=== PATIENT | female | born 1955 | race Caucasian/White ===

== ENCOUNTER → 2016-08-19 | Outpatient (CLI) | payer OTHER ==
[~2016-08-19] MED LIST: ALBUAER19 INH; CIPR-255 PO; EZET10TA47 PO; LEVO75TA36 PO; LISI10TA PO; METF-384 PO; NAPR220T40 PO; SIMV20TA2 PO; VITBC PO
--- NOTE | 2016-08-19 15:47 | MAMMOGRAPHY REPORT ---
BILATERAL DIGITAL SCREENING MAMMOGRAM TOMOSYNTHESIS WITH CAD: 08/19/2016 CLINICAL HISTORY: Routine screening. Patient has no complaints. TECHNIQUE: Breast tomosynthesis in addition to standard 2D mammography was performed. Current study was also evaluated with a Computer Aided Detection (CAD) system. COMPARISON: Comparison is made to exams dated: 04/04/2014 mammogram, 04/22/2010 mammogram - [facility], and 08/11/2007. BREAST COMPOSITION: The tissue of both breasts is almost entirely fatty. FINDINGS: There are numerous benign rim calcifications, rodlike secretory calcifications and stable punctate benign-appearing microcalcifications in the breasts. No new suspicious mass, architectura l distortion or cluster of microcalcifications is seen. IMPRESSION: ACR BI-RADS CATEGORY 1: NEGATIVE There is no mammographic evidence of malignancy. A 1 year screening mammogram is recommended. The p atient will receive written notification of the results. Approximately 10% of breast cancers are not detected with mammography. A negative mammographic repor t should not delay biopsy if a clinically suggestive mass is present. Olesya Urias M.D. ay/:08/19/2016 13:39:06 Pile Trimmer: Fely Reid RT(R)(M), [facility] letter sent: Normal 1/2 BI-RADS Code: ACR BI-RADS Category 1: Negative
== END | disposition home or self-care (01) ==
LOC: C.MAMM 13:12
PROVIDERS: ATTEND Family Medicine
DX: Z12.31 Encounter for screening mammogram for malignant neoplasm of breast (principal)

== ENCOUNTER → 2016-09-01 | Outpatient (CLI) | payer OTHER ==
[2016-09-01 12:30] LABS: ALT/SGPT 34 U/L (12-78); AST/SGOT 24 U/L (15-37); BLOOD UREA NITROGEN 15 mg/dl (7-18); BUN/CREATININE RATIO 17.9 (10-20); CALCIUM 9.8 mg/dl (8.5-10.1); CARBON DIOXIDE 32 mmol/L (21-32); CHLORIDE 101 mmol/L (98-107); CREATININE 0.85 mg/dl (0.60-1.20); GLUCOSE 89 mg/dl (70-99); POTASSIUM 4.3 mmol/L (3.5-5.1); SODIUM 140 mmol/L (136-145)
[2016-09-01 12:40] LABS: ALB/GLOB RATIO 0.9 (0.9-2); ALKALINE PHOSPHATASE 109 U/L (45-117); CHOLESTEROL 178 mg/dl (0-200); CHOLESTEROL/HDL RATIO 3.4; ESTIMATED AVERAGE GLUCOSE 123 mg/dl; HA1C FLAG Normal (Normal); HDL CHOLESTEROL 53 mg/dl; LDL CHOLESTEROL CALCULATED 81 mg/dl; TRIGLYCERIDES 219 mg/dl (0-150); VERY LOW DENSITY LIPOPROT CALC 44 mg/dl
[2016-09-01 13:01] LABS: RATIO 32.3 mcg/mg (0-30.0)
== END | disposition home or self-care (01) ==
LOC: C.LAB1850 10:31
PROVIDERS: ATTEND Family Medicine
DX: E03.9 Hypothyroidism, unspecified (principal); E11.9 Type 2 diabetes mellitus without complications; E78.5 Hyperlipidemia, unspecified; I10 Essential (primary) hypertension

== ENCOUNTER → 2016-12-08 | Outpatient (CLI) | payer OTHER ==
[2016-12-08 13:39] LABS: THYROID STIMULATING HORMONE 4.09 uIu/ml (0.300-4.500)
== END | disposition home or self-care (01) ==
LOC: C.LAB1850 11:42
PROVIDERS: ATTEND Family Medicine
DX: E03.9 Hypothyroidism, unspecified (principal)

== ENCOUNTER → 2017-05-11 | Outpatient (CLI) | payer OTHER ==
[2017-05-11 09:46] LABS: ESTIMATED AVERAGE GLUCOSE 128 mg/dl; HA1C FLAG Normal (Normal)
[2017-05-11 09:57] LABS: ALB/GLOB RATIO 0.9 (0.9-2); ALT/SGPT 32 U/L (12-78); AST/SGOT 23 U/L (15-37); BLOOD UREA NITROGEN 13 mg/dl (7-18); BUN/CREATININE RATIO 17.1 (10-20); CARBON DIOXIDE 27 mmol/L (21-32); CHLORIDE 105 mmol/L (98-107); CHOLESTEROL 165 mg/dl (0-200); CREATININE 0.73 mg/dl (0.60-1.20); GLUCOSE 104 mg/dl (70-99); POTASSIUM 4.1 mmol/L (3.5-5.1); SODIUM 139 mmol/L (136-145); TRIGLYCERIDES 192 mg/dl (0-150); VERY LOW DENSITY LIPOPROT CALC 38 mg/dl
[2017-05-11 10:07] LABS: ALKALINE PHOSPHATASE 117 U/L (45-117); CHOLESTEROL/HDL RATIO 3.3; HDL CHOLESTEROL 50 mg/dl; LDL CHOLESTEROL CALCULATED 77 mg/dl
== END | disposition home or self-care (01) ==
LOC: C.LAB1850 08:24
PROVIDERS: ATTEND Family Medicine
DX: E03.9 Hypothyroidism, unspecified (principal); E11.9 Type 2 diabetes mellitus without complications; E78.5 Hyperlipidemia, unspecified; J20.9 Acute bronchitis, unspecified; I10 Essential (primary) hypertension

== ENCOUNTER 2020-06-10 05:13 | Observation (INO) ==
--- NOTE | 2020-04-23 08:27 | PAT Medication Instructions ---
Medication Instructions Date of Service April 23, 2020 Home Medications Medication Instructions Recorded atorvastatin 20 mg tablet 20 mg PO DAILY #90 tab 08/23/19 escitalopram oxalate 5 mg tablet 5 mg PO DAILY #90 tab 08/23/19 ezetimibe 10 mg tablet 10 mg PO DAILY #90 tab 08/23/19 amlodipine 10 mg tablet 10 mg PO DAILY #90 tab 04/11/20 hydrochlorothiazide 25 mg tablet 25 mg PO DAILY #90 tab 04/11/20 levothyroxine 137 mcg tablet 137 mcg PO DAILY #90 tab 04/11/20 losartan 50 mg tablet 50 mg PO BID #180 tab 04/11/20 metformin 1,000 mg tablet 1,000 mg PO DAILY #90 tab 04/11/20 vitamin B complex 1 tab PO .COMPLEX atorvastatin 20 mg tablet 20 mg PO DAILY escitalopram oxalate 5 mg tablet 5 mg PO DAILY ezetimibe 10 mg tablet 10 mg PO DAILY amlodipine 10 mg tablet 10 mg PO DAILY hydrochlorothiazide 25 mg tablet 25 mg PO DAILY levothyroxine 137 mcg tablet 137 mcg PO DAILY losartan 50 mg tablet 50 mg PO BID metformin 1,000 mg tablet 1,000 mg PO DAILY DO NOT take the morning of surgery vitamin B complex 1 tab PO .COMPLEX hydrochlorothiazide 25 mg tablet 25 mg PO DAILY losartan 50 mg tablet 50 mg PO BID metformin 1,000 mg tablet 1,000 mg PO DAILY Take morning of surgery With a small sip of water, OTHERWISE NOTHING TO EAT OR DRINK AFTER MIDNIGHT: atorvastatin 20 mg tablet 20 mg PO DAILY escitalopram oxalate 5 mg tablet 5 mg PO DAILY ezetimibe 10 mg tablet 10 mg PO DAILY amlodipine 10 mg tablet 10 mg PO DAILY levothyroxine 137 mcg tablet 137 mcg PO DAILY Other Notes If you have any questions please call us at [phone] or [phone] or [phone] or [phone]
--- NOTE | 2020-04-23 09:15 | Anesthesiology Consultation ---
Date of Service April 23, 2020 Assessment & Plan (1) Encounter for pre-operative examination: - Per assessment on 04/23: Travel screen negative. No known COVID-19 positive contacts or current COVID-19 related symptoms. Patient's daughter works at [employer] (nurse)- sees her regularly (but patient voices understanding that she will follow COVID precaution guidelines if any further interactions with daughter prior to DOS. No positive cases currently in that facility per patient. She receives routine work protocol COVID testing which was negative. Surgeon arranging preop COVID testing. Awaiting results. - Check BSG AM DOS Chart Review Chart Review: Acceptable Risk for Surgery and Patient seen in Pre Admission T esting Teaching & Discussion Pre-Anesthesia Teaching/Discussion Notes: Instructed NPO after midnight before surgery,except medications with 15 cc of water. Medication instructions provided according to the PAT guidelines. History Surgery Operation Date: 06/10/20 09:20 Proposed Procedures p Right Total Knee Arthroplasty - Leonardo Phillips MD Height/Weight Height: 5 ft 5.5 in Weight: 92.1 kg Allergies Allergy/AdvReac Type Severity Reaction Status Date / Time ibuprofen [From Advil] AdvReac Intermediate heart Verified 04/23/20 09:09 fluttering sensation (see comments) Medications Home Medications Medication Instructions Recorded Confirmed Last Taken vitamin B complex 1 tab PO .COMPLEX 04/24/19 04/19/20 Unknown atorvastatin 20 mg tablet 20 mg PO DAILY #90 tab 08/23/19 04/19/20 Unknown escitalopram oxalate 5 mg tablet 5 mg PO DAILY #90 tab 08/23/19 04/19/20 Unknown ezetimibe 10 mg tablet 10 mg PO DAILY #90 tab 08/23/19 04/19/20 Unknown amlodipine 10 mg tablet 10 mg PO DAILY #90 tab 04/11/20 04/19/20 Unknown hydrochlorothiazide 25 mg tablet 25 mg PO DAILY #90 tab 04/11/20 04/19/20 Unknown levothyroxine 137 mcg tablet 137 mcg PO DAILY #90 tab 04/11/20 04/19/20 Unknown losartan 50 mg tablet 50 mg PO BID #180 tab 04/11/20 04/19/20 Unknown metformin 1,000 mg tablet 1,000 mg PO DAILY #90 tab 04/11/20 04/19/20 Unknown Past Medical History Medical History Depression Hx of migraines Hyperlipidemia Hypertension Hypothyroidism Obesity Osteoarthritis Type 2 diabetes mellitus NIDDM Exercise / Class Metabolic Activity II 4-5 Yardwork/Stairs/Walk up hill Past Family History Family History Mother Atherosclerosis Peripheral vascular disease Father , age 45 Stroke Hypertension Aunt Diabetes maternal Breast cancer maternal Grandmother (Maternal) Diabetes Sister Hypertension Denies family history of Ovarian cancer Prostate cancer Lung cancer Colorectal cancer Past Surgical History Surgical History H/O arthroscopy of right knee History of hysterectomy Kinde teeth removed Past Anesthesia History No Hx of Anesthesia Complications Mother- "slow to wake" History of PONV No Hx of PONV and Hx of Motion Sickness (+ carrides) Social History Smoking Status: Never smoker Do You Dip or Chew Tobacco: No Hx Alcohol Use: Yes alcohol intake frequency: holidays/special occasions only Hx Substance Use: No substance use type: does not use Review of Systems Patient denies chest pain, shortness of breath, dyspnea on exertion, fever, chills, cough, wheezing, palpitations. Physical Exam Vital Signs VITALS BP 123/81 P 90 TEMP 98.0 SP02 97%RA RESP 16 PHYSICAL Full neck and c-spine range of motion. Full TMJ range of motion. TMD 3 finger breaths Mallampati Score 1 Dentition: upper front right chipped Lungs: clear throughout to auscultation Cardiac: regular rate and rhythm, I/ systolic murmur Spine: normal Carotid arteries: negative bruit Extremities: no edema Testing Laboratory Results 04/23/20 09:34 04/23/20 09:34 PT 10.3 Seconds (9.0-12.0) 04/23/20 09:34 INR 1.0 (0.9-1.1) 04/23/20 09:34 APTT 25.6 Seconds (21.0-31.0) 04/23/20 09:34 Hemoglobin A1c 5.9 % (4.5-5.6) H 04/23/20 09:34 Blood Type B Positive 04/23/20 09:34 Antibody Screen NEGATIVE 04/23/20 09:34 Electrocardiogram Date: 04/23/20 NSR at 89bpm. unconfirmed report. Chest X-Ray Date: 04/23/20 FINDINGS: PA and lateral chest radiographs are obtained. No prior studies are available for comparison at the time of dictation. The cardiomediastinal silhouette is unremarkable. There is mild bibasilar atelectasis. The lungs and pleural spaces are otherwise clear. There is no pneumothorax. The skeletal structures are osteopenic. The bony thorax appears intact. Mild subluxation is suggested at both glenohumeral joints. IMPRESSION: No active disease in the chest.
[2020-04-23 10:11] LABS: Basophils # (auto) 0.03 K/uL (0-0.2); Basophils % (auto) 0.4 %; Eosinophils # (auto) 0.28 K/uL (0-0.5); Eosinophils % (auto) 3.3 %; Hematocrit (blood only) 43.2 % (37-47); Hemoglobin 14.6 g/dL (12.0-16.0); Immature Granulocytes # (auto) 0.01 K/uL (0.00-0.02); Immature Granulocytes % (auto) 0.1 %; Lymphocytes # (auto) 1.86 K/uL (1.2-3.4); Lymphocytes % (auto) 21.8 %; Mean Corpuscular Hgb Conc 33.8 g/dL (32-36); Mean Corpuscular Volume 91.7 fL (80-100); Mean Platelet Volume 9.8 fL (7.4-10.4); Monocytes # (auto) 0.78 K/uL (0.11-0.59); Monocytes % (auto) 9.1 %; Neutrophils # (auto) 5.57 K/uL (1.4-6.5); Neutrophils % (auto) 65.3 %; Platelet Count 379 K/uL (130-400); RDW Coefficient of Variation 12.3 % (11.5-14.5); RDW Standard Deviation 41.5 fL (36.4-46.3); Red Blood Count 4.71 M/uL (4.2-5.4); White Blood Count 8.53 K/uL (4.8-10.8)
[2020-04-23 10:19] LABS: Estimated Average Glucose 123 mg/dl; Hemoglobin A1C 5.9 % (4.5-5.6)
[2020-04-23 10:23] LABS: Partial Thromboplastin Ratio 0.9; Partial Thromboplastin Time 25.6 Seconds (21.0-31.0); Prothrombin Time 10.3 Seconds (9.0-12.0)
--- NOTE | 2020-04-23 10:55 | XRay Report ---
TWO VIEW CHEST CLINICAL HISTORY: Preoperative examination. FINDINGS: PA and lateral chest radiographs are obtained. No prior studies are available for compariso n at the time of dictation. The cardiomediastinal silhouette is unremarkable. There is mild bibasila r atelectasis. The lungs and pleural spaces are otherwise clear. There is no pneumothorax. The skelet al structures are osteopenic. The bony thorax appears intact. Mild subluxation is suggested at both g lenohumeral joints. IMPRESSION: No active disease in the chest. ACT 112: Negative or not required by law. Electronically signed by: Anjum Newton M.D. 04/23/2020 10:54 AM
[2020-04-23 11:31] LABS: BUN Creatinine Ratio 15.4 (10-20); Calcium 9.5 mg/dl (8.5-10.1); Creatinine Clr Calc Pharmacy 83.6 ml/min; Est GFR (Non-African American) 80.2; Potassium 3.7 mmol/L (3.5-5.1)
--- NOTE | 2020-04-23 18:12 | Electrocardiogram Report ---
Test Reason : Blood Pressure : / mmHG Vent. Rate : 089 BPM Atrial Rate : 089 BPM P-R Int : 158 ms QRS Dur : 100 ms QT Int : 372 ms P-R-T Axes : 068 036 053 degrees QTc Int : 452 ms Normal sinus rhythm Normal ECG When compared with ECG of 24-SEP-2004 16:22, Nonspecific T wave abnormality no longer evident in Inferior leads Confirmed by Gilmer Grant ([id number]) on 04/23/2020 6:12:41 PM Referred By: Leonardo Phillips Confirmed By:George Grant
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
[2020-06-10] MEDS ORDERED: FAMOTIDINE 20 MG TAB PO SCH (06:00)
[2020-06-10] MEDS ORDERED: GABAPENTIN 300 MG CAP PO SCH (06:00)
[2020-06-10] MEDS ORDERED: LR 500ML BOLUS, THEN 15ML/HR IV SCH (06:00)
[2020-06-10] MEDS ORDERED: TRANEXAMIC ACID 1,000 MG **IV Intra-op IV SCH (06:00)
[2020-06-10] MEDS ORDERED: ACETAMINOPHEN 500 MG TAB PO SCH (06:00)
[2020-06-10] MEDS ORDERED: BUPIVACAINE LIPOSOME/PF 266 MG, BUPIVACAINE/EPINEPHRINE 50 ML, SODIUM CHLORIDE 0.9% 30 ... INFIL SCH (06:00)
[2020-06-10] MEDS ORDERED: ceFAZolin 2000MG 2,000 MG/15 ML SYR IV SCH (06:00)
[2020-06-10] MEDS ORDERED: METOCLOPRAMIDE HCL 10 MG TABLET PO SCH (06:00)
[2020-06-10] MEDS ORDERED: LR 60ML/HR IV SCH (06:00)
[2020-06-10] MEDS ORDERED: fentaNYL citrate 100 MCG/2 ML VIAL ONE (06:22)
[2020-06-10] MEDS ORDERED: MIDAZOLAM HCL 1 MG/ML 2ML VIAL ONE (06:22)
[2020-06-10] MEDS ORDERED: PROPOFOL IV EMULSION 10 MG/ML 20 ML VIAL IV ONE (06:22)
[2020-06-10] MEDS ORDERED: EPINEPHrine INJ 1 MG/ML AMP ONE (06:27)
[2020-06-10] MEDS ORDERED: ROPIVACAINE 0.5% 5 MG/ML 30 ML VIAL ONE (06:27)
[2020-06-10] MEDS ORDERED: BUPIVACAINE 0.5 % 5 MG/1 ML PF 10ML VIAL ONE (06:27)
[2020-06-10] MEDS ORDERED: BUPIVACAINE LIPOSOME 1.3% 266 MG/20 ML VIAL ONE (06:28)
[2020-06-10] MEDS ORDERED: SODIUM CHLORIDE 0.9% PF 50 ML VIAL ONE (06:28)
[2020-06-10] MEDS ORDERED: BACITRACIN INJ 50,000 UNIT VIAL ONE (06:28)
[2020-06-10] MEDS ORDERED: BUPIVACAINE/EPINEPHRINE 0.25% 1:200,000 30 ML VIAL ONE (06:28)
--- NOTE | 2020-06-10 06:50 | History & Physical Bridge Note ---
Date of Service June 10, 2020 History & Physical Bridge Note I have examined the patient, reviewed the History & Physical and in the interval since the performance of the History & Physical I have noted the following changes of clinical significance: no changes noted
[2020-06-10] MEDS ORDERED: ePHEDrine sulfate 50 MG/ML SYR ONE (07:17)
[2020-06-10] MEDS ORDERED: PHENYLEPHRINE 100MCG/ML 5ML SYR ONE (07:17)
[2020-06-10] MEDS ORDERED: ePHEDrine sulfate 50 MG/ML AMP IV PRN (07:18)
[2020-06-10] MEDS ORDERED: PHENYLEPHRINE 100MCG/ML 5ML SYR IV PRN (07:18)
[2020-06-10] MEDS ORDERED: fentaNYL citrate 100 MCG/2 ML VIAL IV PRN (07:18)
[2020-06-10] MEDS ORDERED: HYDROmorphone INJ 1 MG/ML SYRINGE IV PRN (07:18)
[2020-06-10] MEDS ORDERED: ATROPINE SULFATE 0.1 MG/ML 10ML SYR IV PRN (07:18)
[2020-06-10] MEDS ORDERED: MEPERIDINE HCL 25 MG/ML CARP/VIAL IV PRN (07:18)
[2020-06-10] MEDS ORDERED: LABETALOL HCL IV 5 MG/ML 20ML IV PRN (07:18)
[2020-06-10] MEDS ORDERED: ONDANSETRON INJ 2 MG/ML 2 ML VIAL IV PRN ×2 (07:18→09:54)
--- NOTE | 2020-06-10 08:39 | Post Operative Brief Note ---
PG Immediate Post Op with CF Date of Surgery June 10, 2020 Pre & Post Diagnosis Operation Date: 06/10/20 07:00 Pre-Op Diagnosis: Right Knee Degenerative Joint Disease Post-Op Diagnosis: Right Knee Degenerative Joint Disease I identified the patient and participated in the time-out.: Yes Procedure Operation Date: 06/10/20 07:00 Actual Procedures p Right Total Knee Arthroplasty, Cemented(Right) - Leonardo Phillips MD Surgeon Leonardo Phillips MD Technical Communication Teacher [place], [facility] Estimated Blood Loss 50 Findings Consistent with Post-Op Diagnosis Fluids 1000 cc Specimens Specimen Description: Permanent Specimen A: Right knee bone and tissue Drains Rubio Catheter Anesthesia Type Spinal MAC Complications none Disposition Accompanied Patient To Recovery: No Disposition: Recovery Room
--- NOTE | 2020-06-10 08:52 | Operative Report ---
Post Operative Report Pre & Post Diagnosis Operation Date: 06/10/20 07:00 Pre-Op Diagnosis: Right Knee Degenerative Joint Disease Post-Op Diagnosis: Right Knee Degenerative Joint Disease I identified the patient and participated in the time-out.: Yes Procedure Operation Date: 06/10/20 07:00 Actual Procedures p Right Total Knee Arthroplasty, Cemented(Right) - Leonardo Phillips MD Surgeon Leonardo Phillips MD Recycling Specialist [place], [facility] Estimated Blood Loss 50 Findings Consistent with Post-Op Diagnosis Operative findings revealed advanced right knee DJD. She had extensive grade 4 [id number] disease and eburnation of the medial compartment. and a slight flexion contracture. Moderate-sized joint effusion. She less severe changes in the lateral and patellofemoral compartments. She had a varus deformity to her knee with large posterior osteophytes. Moderate-sized joint effusion. Fluids 1000 cc. Specimens Right knee sent for pathology. Drains None. Anesthesia Type Spinal MAC Complications none Disposition Accompanied Patient To Recovery: No Disposition: Recovery Room Indications Patient is a 64-year-old female with about 10-year history of bilateral increasing knee pain and discomfort. She been through extensive conservative treatment the past with became less successful. X-rays show advanced bilateral knee DJD. The right knee was by the more than left and she elected proceed with right total knee arthroplasty. Description of Procedure Operative implants consist of: 1. Biomet Vanguard size 62.5 right posterior stabilized femoral component. 2. Biomet size 63 tibial tray. 3. 10 mm posterior stabilized polyethylene insert. 4. 28 x 8 all polypatella. The patient was taken to the operating identified and placed on the operating table supine position but all contact areas were properly padded. IV antib iotics tried by anesthesia team. A spinal anesthetic and abductor canal block had been provided in the holding area. Rubio catheter was placed in sterile fashion. Right thigh tip was then placed in the right lower extremities and prepped draped in usual sterile fashion. The right leg was elevated exsanguinated with use of an Esmarch and turns placed at 3 mmHg. An anterior approach to the right knee was then performed to longitudinal incision centered over the patella. Sharp dissection was got through subcutaneous this down the extensor mechanism. A medial parapatellar arthrotomy incision was made. Some subperiosteal dissection was carried out medially. The fat pad was resected from each patella tendon. Lateral patellofemoral ligament was released. Patella was subluxated laterally and the knee was flexed. The osteophytes were taken off distal femur. The ACL and PCL were then released from the distal femur and the tibia subluxated anteriorly. The external tibial alignment jig was then placed in the interface the tibia and adjusted 14 mm medially. Proximal tibial cut was made to remove about a millimeter bone from most efficient aspect medial till plateau. Some osteoph ytes were taken off medial and posterior medially. The tibia sized to a size 63. Attention drawn the femur. The distal femur examined with a sharp drill. Intramedullary canal was suction. A right 5 degree valgus cutting guide was placed but distal femoral cutting block was pinned in place but this femoral cut was made to take an additional 3 mm bone off distal femur. Femur was then sized to a size 62.5. We downsized this just very slightly. The AP cutting block was pinned parallel to the epicondylar axis which was 4 degrees of external rotation. Anterior cut, anterior chamfer, posterior cut, posterior chamfer cuts were made. Box cutting guide was placed and adjusted slightly laterally. The box cut was made. The knee was flexed. The remnants of the medial lateral menisci were excised. The osteophytes were taken off the posterior aspect the femur. A trial femoral component was placed. The tibial tray was pinned in maximum external rotation and the drill and stem punch were used to create defect in proximal tibia for the tibial tray. Knee was then trialed and the 10 mm insert fit most appropriately. Attention drawn the patella. Patella was cleaned of all soft tissues. Patella thickness measured 21 mm in thickness and was cut down 13. Size a size 28 patella. The lug holes were drilled for the 28 patella. The lateral osteophyte is moved. Patella button was placed. Knee was taken through range of motion patella tracked nicely with no thumbs test. Attention drawn to placing permanent components. All trial components were removed. Bone plug was placed in the distal femur limit blood loss put a double batch Palacos G cement was mixed. [employer] size 62.5 right posterior stabilized femoral component, size 63 tibial tray, 10 mm posterior bite polyethylene insert, 28 x 8 all polypatella were then cemented in place. Knee was brought out into full extension total cement hardened. Final cement check was then performed. The pericapsular tissues were injected with total 100 cc of combination of 20 cc of Exparel, 30 cc normal saline, 50 cc of quarter percent Marcaine with epinephrine. Patient did receive 1 g tranexamic acid. The tourniquet was then let down for final treatment time 50 minutes. Hemostasis assured use electrocautery. The wound was irrigated with copious normal saline. The extensor macros then closed with combination 1 PDS suture #1 Vicryl suture in [id number] fashion. Extensor mechanism checked found to be intact and the subcutaneous tissue then closed with 2 Dexon suture in a buried interrupted fashion skin was closed skin lawrence. Leg was then cleaned dried and sterile dressed composed Xeroform, 4 fourths, sterile cast padding, Myron bandage applied. Patient then transferred to the recovery room in stable condition. Patient tolerated procedure well and there were no complications. Jan Christina, my physician insurance account assistant, was present for the entire procedure. His assistance was essential and required for appropriate patient positioning, prepping and draping, surgical exposure, performing the technical details of the operation, placement the implants, closure of the wound, and placement of the sterile bandage. I attest to the content of the Intraoperative Record and any orders documented therein. Any exceptions are noted below.
--- NOTE | 2020-06-10 09:09 | XRay Report ---
XR knee RT 1 or 2V routine CLINICAL HISTORY: Surgical Post Op COMPARISON: December 2018 DISCUSSION: There are postsurgical changes of a total right knee arthroplasty and patellar resurfacin g. Overlying skin lawrence and surgical drains are visualized. The femoral tibial components appear we ll seated. There is gas present within the soft tissues consistent with recent surgery. IMPRESSION: Postsurgical changes of a total right knee arthroplasty. ACT 112: Negative or not required by law. Electronically signed by: Ken Del Toro M.D. 06/10/2020 9:08 AM
--- NOTE | 2020-06-10 09:31 | Anesthesiology Progress Note ---
Date of Service June 10, 2020 Anesthesia Post Procedure Vital Signs Vital Signs: Temp Pulse Pulse Resp BP Pulse Ox 06/10/20 09:20 80 20 128/62 92 06/10/20 09:10 76 16 101/71 98 06/10/20 09:00 80 16 101/64 98 06/10/20 08:50 78 19 104/60 99 06/10/20 08:44 36.2 C L 84 19 121/64 98 06/10/20 06:05 80 18 151/90 H 96 06/10/20 05:48 36.7 C 90 18 166/103 H 98 Transfer of Care Handoff Completed per policy Notes Mental Status: alert / awake / arousable Patient Amnestic to Procedure: Yes Nausea / Vomiting: adequately controlled Pain: adequately controlled Airway Patency, RR, SpO2: stable & adequate BP & HR: stable & adequate Hydration State: stable & adequate Neuraxial Anesthesia: was administered and sensory block is resolving Anesthetic Complications: no major complications apparent and Pt Satisfied with anesthetic care
[2020-06-10] MEDS ORDERED: MAGNESIUM HYDROXIDE SUSP 30 ML UDC PO PRN (09:54)
[2020-06-10] MEDS ORDERED: DEXTROSE 50% 50 ML SYRINGE IV PRN (09:54)
[2020-06-10] MEDS ORDERED: PHARMACY GLYCEMIC MGMT CONSULT PRN (09:54)
[2020-06-10] MEDS ORDERED: GLUCOSE 40% GEL 15 GM TUBE PO PRN (09:54)
[2020-06-10] MEDS ORDERED: NALOXONE HCL 0.4 MG/1 ML VIAL/CARP IV PRN (09:54)
[2020-06-10] MEDS ORDERED: METOCLOPRAMIDE HCL INJ 5 MG/ML 2 ML VIAL IV PRN (09:54)
[2020-06-10] MEDS ORDERED: ALUMINUM/MAGNESIUM SUSP 30 ML UDC PO PRN (09:54)
[2020-06-10] MEDS ORDERED: CARBOHYDRATES FOR HYPOGLYCEMIA PO PRN (09:54)
[2020-06-10] MEDS ORDERED: diphenhydrAMINE Capsule 25 MG CAP PO PRN (09:54)
[2020-06-10] MEDS ORDERED: HYDROmorphone INJ 0.5 MG/0.5 ML SYR IV PRN (09:54)
[2020-06-10] MEDS ORDERED: bisacodyL 10 MG SUPP PR PRN (09:54)
[2020-06-10] MEDS ORDERED: GLUCAGON FOR INJ 1 MG VIAL SQ PRN (09:54)
[2020-06-10] MEDS ORDERED: GLUCOSE 10 TABS/TUBE PO PRN (09:54)
--- NOTE | 2020-06-10 10:29 | Pharmacy Report ---
Glycemic Control Consultation - Date of Service June 10, 2020 - Scope Scope: Glycemic Pharmacist consulted for glycemic control and to write orders per [facility] inpatient glycemic control protocol. - Objective Weight: 89.528 kg Accuchecks BSG (last 24hrs): 06/10/20 06/10/20 06/10/20 05:39 08:50 10:08 POC Glucose 101 H 143 H 104 H HbA1c: Hemoglobin A1c 5.9 % (4.5-5.6) H 04/23/20 09:34 - Recent Pertinent Medications Outpatient Anti-diabetic Regimen: * Metformin 1000 mg PO qAM * A1c = 5.9% 04/23/2020 Risk Factors for Insulin Resistance: * Recent Surgery: * POD #0 s/p R TKA * Diet: * T2DM - Assessment & Plan Assessment & Plan: ASSESSMENT: * 64 yo F admitted s/p R TKA this morning. Pharmacy is consulted for inpatient glycemic management. Patient's HbA1c demonstrates excellent outpatient control of T2DM on metformin monotherapy. * Post-operative BSG was 104 mg/dL. Patient is ordered a T2DM diet and will be eating lunch. * Will start Novolog based on a weight/stress of 1-2. Will order metformin to start tomorrow morning. PLAN FOR INPATIENT GLYCEMIC CONTROL: * Metformin 1000 mg PO qAM (starting 06/11) * Bolus insulin * NovoLog per scale ACHS or Q6hrs while NPO * Goal Range: Low 110 mg/dL - High 140 mg/dL * Correction Factor: 30 mg/dL/unit * Nutritional / Prandial insulin per carb ratio of 1 unit per 10 grams CHO consumed DISCHARGE RECOMMENDATIONS: * HbA1c = 5.9%. Continue Metformin 1000 mg PO qAM upon patient discharge. * Please note that the plan above was derived based on current level of insulin resistance and hospital stress. These recommendations are appropriate for inpatient admission only. Plan of care upon discharge will need to be reassessed to avoid potential outpatient hypo/hyperglycemia. Thank you.
[2020-06-10] MEDS: DOCUSATE SODIUM 100 MG CAP PO SCH ×2 (11:24→20:55)
[2020-06-10] MEDS: hydroCHLOROthiazide 25 MG TAB PO SCH (11:24)
[2020-06-10] MEDS: MULTIVITAMIN TAB PO SCH (11:24)
[2020-06-10] MEDS: EZETIMIBE 10 MG TABLET PO SCH (11:25)
[2020-06-10] MEDS: ATORVASTATIN 20 MG TAB PO SCH (11:25)
[2020-06-10] MEDS: ASPIRIN 81 MG ECTAB PO SCH ×2 (11:25→20:55)
[2020-06-10] MEDS: LOSARTAN POTASSIUM 50 MG TAB PO SCH ×2 (11:25→20:55)
[2020-06-10] MEDS: TAPENTADOL HCL ER 50 MG TABCR PO SCH ×2 (12:21→20:55)
[2020-06-10] MEDS: KETOROLAC 30 MG/ML VIAL IV SCH ×3 (12:21→22:21)
[2020-06-10] MEDS: INSULIN ASPART 100 UNITS/ML 3 ML PEN SC SCH ×3 (12:54→23:09)
[2020-06-10] MEDS: ACETAMINOPHEN 500 MG TAB PO SCH ×2 (14:02→22:21)
[2020-06-10] MEDS: SODIUM CHLORIDE 0.9% 1000ML 1,000 ML IV SCH ×2 (14:02→20:40)
[2020-06-10] MEDS: ceFAZolin 2000MG 2,000 MG/15 ML SYR IV SCH ×2 (14:03→22:22)
[2020-06-10] MEDS ORDERED: TRANEXAMIC ACID / 0.7% NACL 1,000 MG/100 ML BAG IV SCH (15:00)
[2020-06-10] MEDS: oxyCODONE HCL IR 5 MG TAB (IMMEDIATE RELEASE) PO PRN (15:33)
[2020-06-10] MEDS: Scopolamine CHECK PATCH PLACEMENT SCH (15:45)
[2020-06-10] MEDS: FERROUS GLUCONATE 324 MG TAB PO SCH (16:47)
[2020-06-10] MEDS: ASCORBIC ACID 500 MG TAB PO SCH (16:48)
[2020-06-10] MEDS: SENNA 8.6 MG TAB PO SCH (20:55)
[2020-06-11] MEDS: Scopolamine CHECK PATCH PLACEMENT SCH ×3 (00:25→15:27)
[2020-06-11] MEDS ORDERED: COUGH DROP (SUGAR FREE) LOZ 24 LOZ/1 BOX BUCCAL PRN (04:26)
[2020-06-11] MEDS: KETOROLAC 30 MG/ML VIAL IV SCH ×4 (04:50→22:12)
[2020-06-11] MEDS: ACETAMINOPHEN 500 MG TAB PO SCH ×3 (05:30→21:30)
[2020-06-11 07:31] LABS: Hematocrit (blood only) 38.9 % (37-47); Hemoglobin 12.6 g/dL (12.0-16.0); Mean Corpuscular Hemoglobin 30.4 pg (25-34); Mean Corpuscular Hgb Conc 32.4 g/dL (32-36); Mean Corpuscular Volume 93.7 fL (80-100); Mean Platelet Volume 9.7 fL (7.4-10.4); Platelet Count 346 K/uL (130-400); RDW Coefficient of Variation 12.6 % (11.5-14.5); RDW Standard Deviation 43.2 fL (36.4-46.3); Red Blood Count 4.15 M/uL (4.2-5.4); White Blood Count 9.93 K/uL (4.8-10.8)
[2020-06-11 08:05] LABS: BUN Creatinine Ratio 17.2 (10-20); Calcium 8.3 mg/dl (8.5-10.1); Creatinine Clr Calc Pharmacy 67.8 ml/min; Est GFR (African American) 73.5; Est GFR (Non-African American) 63.4; Potassium 3.9 mmol/L (3.5-5.1)
[2020-06-11] MEDS: INSULIN ASPART 100 UNITS/ML 3 ML PEN SC SCH ×4 (08:34→20:54)
[2020-06-11] MEDS: DOCUSATE SODIUM 100 MG CAP PO SCH ×2 (08:36→21:31)
[2020-06-11] MEDS: ASCORBIC ACID 500 MG TAB PO SCH ×2 (08:36→17:50)
[2020-06-11] MEDS: metFORMIN HCL 500 MG TAB PO SCH (08:37)
[2020-06-11] MEDS: ASPIRIN 81 MG ECTAB PO SCH ×2 (08:37→21:30)
[2020-06-11] MEDS: LOSARTAN POTASSIUM 50 MG TAB PO SCH ×2 (08:37→21:29)
[2020-06-11] MEDS: MULTIVITAMIN TAB PO SCH (08:38)
[2020-06-11] MEDS: ESCITALOPRAM OXALATE 10 MG TAB PO SCH (08:38)
[2020-06-11] MEDS: EZETIMIBE 10 MG TABLET PO SCH (08:39)
[2020-06-11] MEDS: hydroCHLOROthiazide 25 MG TAB PO SCH (08:39)
[2020-06-11] MEDS: amLODIPine BESYLATE 5 MG TAB PO SCH (08:39)
[2020-06-11] MEDS: FERROUS GLUCONATE 324 MG TAB PO SCH ×2 (08:40→17:50)
[2020-06-11] MEDS: ATORVASTATIN 20 MG TAB PO SCH (08:40)
[2020-06-11] MEDS: TAPENTADOL HCL ER 50 MG TABCR PO SCH ×2 (08:46→21:28)
[2020-06-11] MEDS ORDERED: VITAMIN B COMPLEX TAB PO SCH (09:00)
[2020-06-11] MEDS: oxyCODONE HCL IR 5 MG TAB (IMMEDIATE RELEASE) PO PRN ×2 (10:05→17:58)
--- NOTE | 2020-06-11 10:52 | Pharmacy Report ---
Pharmacy Glycemic Sign Off Nt - Date of Service June 11, 2020 - Assessment & Plan ASSESSMENT: * Pharmacy was consulted by Dr. Vesta Phillips on 06/10/2020 for glycemic control and to write orders per [facility] inpatient glycemic control protocol. * Major changes made by pharmacy to antidiabetic regimen include: * Patient was resumed on her home dose of Metformin 1000 mg PO qAM post- operatively * She was started on bolus insulin to cover carbohydrates and correct hyperglycemia * Patient has been receiving/requiring < 10 units of insulin per day for adequate glycemic control * BSGs ranging 86 - 143 mg/dl * Regimen has only required minor adjustments over the past 48hrs to achieve this level of control * Do not anticipate further changes in patient status that would quickly deteriorate glycemic control (i.e. patient to be NPO for upcoming procedure, steroids tapering, starting tube feedings, etc). * Please see recommendations for outpatient antidiabetic regimen below. PLAN FOR INPATIENT GLYCEMIC CONTROL: No changes needed to current regimen. * Continue Metformin 1000 mg PO qAM * Continue NovoLog per scale ACHS/Q6hrs while NPO * Goal range = 110 - 140 mg/dl * CF = 30 mg/dl/unit * CR = 1 unit for ever 10 g CHO consumed * Pharmacy is signing off of glycemic consult and will no longer be making adjustments to inpatient regimen. Please feel free to re-consult if needed. Thank you. DISCHARGE RECOMMENDATIONS: * A1c 5.9% on 04/23/2020. Continue Metformin 1000 mg PO qAM upon patient discharge.
--- NOTE | 2020-06-11 13:22 | Progress Notes ---
DATE: 06/11/2020 SUBJECTIVE: A 64-year-old female postop day 1 from a right knee replacement. She is doing okay. Therapy went okay. Moderate amount of pain. Having some nausea and concerned about that. No chest pain or shortness of breath. Not feeling dizzy or lightheaded. OBJECTIVE: VITAL SIGNS: Temperature 36.8. Vital signs stable. GENERAL: Shows a pleasant, middle-aged female. She is sitting up in bed, looks reasonably comfortable. LUNGS: Clear to auscultation. HEART: Has a regular rate and rhythm. ABDOMEN: Soft, nontender, nondistended. EXTREMITIES: Grossly neurovascularly intact except as follows: Examination of the right leg reveals the leg to be well aligned. Dressing is clean, dry and intact. She can dorsiflex and plantarflex her foot appropriately. She is neurologically intact. LABORATORY DATA: Hemoglobin 12.6. Hematocrit 38.9. Electrolytes are stable. ASSESSMENT: A 64-year-old female postop day 1 from right knee replacement, doing okay. Having some nausea, which is not unusual. Likely related to anesthesia and pain medicine. PLAN: 1. DVT prophylaxis including thigh-high TEDs, SCDs, and aspirin twice a day. 2. PT/OT. Weight bear as tolerated. Right total knee protocol. 3. Pain control, doing okay with current pain regimen. 4. Nausea. We will continue using Zofran for nausea. 5. Disposition: She is planning to be discharged to home with some home health once adequately recovered and medically stable.
[2020-06-11] MEDS: SENNA 8.6 MG TAB PO SCH (21:29)
[2020-06-12] MEDS: Scopolamine CHECK PATCH PLACEMENT SCH ×2 (00:29→09:07)
[2020-06-12] MEDS: ACETAMINOPHEN 500 MG TAB PO SCH ×2 (05:48→14:37)
[2020-06-12] MEDS: KETOROLAC 30 MG/ML VIAL IV SCH (05:49)
--- NOTE | 2020-06-12 08:03 | Progress Notes ---
DATE: 06/12/2020 SUBJECTIVE: A 64-year-old white female postop day 2 from a right knee replacement. She is doing pretty well. Nausea seems to be improved today. Pain is controlled. No chest pain or shortness of breath. Not feeling dizzy or lightheaded. OBJECTIVE: VITAL SIGNS: Temperature 37.0. Vital signs stable. GENERAL: Physical examination shows a pleasant, middle-aged female. She is lying in bed, looks pretty comfortable this morning. EXTREMITIES: Examination of the right leg reveals the leg to be well aligned. Dressing is clean, dry, and intact. She can dorsiflex and plantarflex her foot appropriately. She is neurologically intact. ASSESSMENT: A 64-year-old white female postop day 2 from right knee replacement, doing well. Nausea is improved. Pain seems to be controlled. PLAN: 1. DVT prophylaxis including thigh-high TEDs, SCDs, and aspirin twice a day. 2. PT/OT. Weight bear as tolerated. Right total knee protocol. 3. Pain control, doing well with current pain regimen. 4. Disposition: Plan to discharge to home later today with some home health.
[2020-06-12] MEDS: FERROUS GLUCONATE 324 MG TAB PO SCH (08:59)
[2020-06-12] MEDS: DOCUSATE SODIUM 100 MG CAP PO SCH (08:59)
[2020-06-12] MEDS: EZETIMIBE 10 MG TABLET PO SCH (08:59)
[2020-06-12] MEDS: ATORVASTATIN 20 MG TAB PO SCH (08:59)
[2020-06-12] MEDS: amLODIPine BESYLATE 5 MG TAB PO SCH (08:59)
[2020-06-12] MEDS: hydroCHLOROthiazide 25 MG TAB PO SCH (09:00)
[2020-06-12] MEDS: metFORMIN HCL 500 MG TAB PO SCH (09:00)
[2020-06-12] MEDS: ASCORBIC ACID 500 MG TAB PO SCH (09:00)
[2020-06-12] MEDS: ESCITALOPRAM OXALATE 10 MG TAB PO SCH (09:00)
[2020-06-12] MEDS: LOSARTAN POTASSIUM 50 MG TAB PO SCH (09:00)
[2020-06-12] MEDS: MULTIVITAMIN TAB PO SCH (09:01)
[2020-06-12] MEDS: ASPIRIN 81 MG ECTAB PO SCH (09:01)
[2020-06-12] MEDS: TAPENTADOL HCL ER 50 MG TABCR PO SCH (09:07)
[2020-06-12] MEDS: INSULIN ASPART 100 UNITS/ML 3 ML PEN SC SCH ×2 (09:10→12:41)
[2020-06-12] MEDS: oxyCODONE HCL IR 5 MG TAB (IMMEDIATE RELEASE) PO PRN (12:44)
--- NOTE | 2020-06-13 16:13 | Discharge Summary ---
Date of Service June 13, 2020 Admission HPI Per Admitting Provider Documented in the H & P Admission Exam (Per Admitting) Constitutional Documented in the H &P Discharge Data Consultations 06/10/20 09:54 Consult Case Management - Discharge Planning Routine Procedures Performed Operation Date: 06/10/20 07:00 Actual Procedures p Right Total Knee Arthroplasty, Cemented(Right) - Leonardo Phillips MD Hospital Course (1) Status post total right knee replacement: This patient is a 64 year old female admitted on 06/10/20 and underwent total knee arthroplasty. She tolerated the procedure well and there were no complications. Transferred to the PACU post op and later to the orthopedic floor for further care. She was given ancef for antibiotic prophylaxis. She was also given COURTNEY stockings, SCDs, and aspirin for DVT prophylaxis. Hemoglobin, hematocrit, and vital signs were monitored during her hospital stay and remained stable. Did not require any blood transfusions. There were no complications during her hospital stay. By post op day #2 the patient was tolerating a diabetic diet, pain was reasonably controlled with oral pain medicine, and she was participating in physical therapy. On post op day #2 the patient was discharged home and set up with home health care. She was given printed discharge instructions including prescriptions for extra strength tylenol, aspirin, zofran, and oxycodone. Continue physical therapy, weight bearing as tolerated. Continue COURTNEY stockings. Follow up approximately 2 weeks post op or sooner if there are problems or concerns. Coding Level of Care Code None Diagnoses Status post total right knee replacement Z96.651
== END 2020-06-12 14:37 | disposition home health service (06) ==
LOC: 3E 05:13 → ASU 05:13

== ENCOUNTER 2025-02-02 08:46 | Observation (INO) ==
--- NOTE | 2025-01-03 12:36 | PAT Medication Instructions ---
Medication Instructions Date of Service January 03, 2025 Home Medications Medication Instructions Recorded blood sugar diagnostic (OneTouch #100 ea 07/08/22 Ultra Test strips) blood-glucose meter (OneTouch #1 ea 07/08/22 Ultra2 Meter kit) cyclobenzaprine 5 mg tablet 5 mg PO TID PRN muscle spasm #30 08/11/23 tabs albuterol sulfate 90 mcg/actuation 2 puff inhalation Q6H PRN 11/15/23 aerosol inhaler shortness of breath or wheezing #18 grams naproxen 500 mg tablet 500 mg PO BID PRN pain #60 tabs 03/15/24 losartan 50 mg tablet 50 mg PO BID #180 tabs 09/25/24 vitamin B complex 1 tab PO UD azelastine 137 mcg (0.1 %) nasal spray 1 spray intranasal Q12H PRN allergies cyclobenzaprine 5 mg tablet 5 mg PO TID PRN muscle spasm albuterol sulfate 90 mcg/actuation aerosol inhaler 2 puff inhalation Q6H PRN shortness of breath or wheezing naproxen 500 mg tablet 500 mg PO BID PRN pain losartan 50 mg tablet 50 mg PO BID amlodipine 10 mg tablet 10 mg PO QAM atorvastatin 20 mg tablet 20 mg PO QAM cholecalciferol (vitamin D3) 50 mcg (2,000 unit) capsule 2,000 unit PO QAM ezetimibe 10 mg tablet (Zetia) 10 mg PO QAM hydrochlorothiazide 25 mg tablet 25 mg PO QAM levothyroxine 125 mcg tablet 125 mcg PO QAM metformin 1,000 mg tablet 1,000 mg PO QAM ASK your surgeon for instructions naproxen 500 mg tablet 500 mg PO BID PRN pain DO NOT take the morning of surgery vitamin B complex 1 tab PO UD losartan 50 mg tablet 50 mg PO BID cholecalciferol (vitamin D3) 50 mcg (2,000 unit) capsule 2,000 unit PO QAM hydrochlorothiazide 25 mg tablet 25 mg PO QAM metformin 1,000 mg tablet 1,000 mg PO QAM Take morning of surgery With a small sip of water, OTHERWISE NOTHING TO EAT OR DRINK AFTER MIDNIGHT: azelastine 137 mcg (0.1 %) nasal spray 1 spray intranasal Q12H PRN allergies (if needed) cyclobenzaprine 5 mg tablet 5 mg PO TID PRN muscle spasm (if needed) albuterol sulfate 90 mcg/actuation aerosol inhaler 2 puff inhalation Q6H PRN shortness of breath or wheezing (use if needed; please bring rescue inhaler with you to hospital day of surgery if possible) amlodipine 10 mg tablet 10 mg PO QAM atorvastatin 20 mg tablet 20 mg PO QAM ezetimibe 10 mg tablet (Zetia) 10 mg PO QAM levothyroxine 125 mcg tablet 125 mcg PO QAM Take evening before surgery azelastine 137 mcg (0.1 %) nasal spray 1 spray intranasal Q12H PRN allergies (if needed) cyclobenzaprine 5 mg tablet 5 mg PO TID PRN muscle spasm (if needed) albuterol sulfate 90 mcg/actuation aerosol inhaler 2 puff inhalation Q6H PRN shortness of breath or wheezing (if needed) losartan 50 mg tablet 50 mg PO BID Other Notes If you have any questions please call us at [phone] or [phone] or [phone] or [phone]
--- NOTE | 2025-01-12 11:03 | Anesthesiology Consultation ---
Date of Service January 12, 2025 Assessment & Plan (1) Encounter for pre-operative examination: - Check BSG DOS - Infectious disease screening: Per assessment on 01/12/25- No known recent infectious disease contacts or current infectious disease symptoms. - Outpatient joint assessment: Pt currently scheduled for inpatient pathway. If surgeon requests review for outpatient joint pathway, patient is not recommended candidate for outpatient joint program from anesthesia standpoint based on available information. - Cardiac murmur: Patient with known hx of cardiac murmur. Echo performed 2020 for murmur evaluation. Murmur again noted on PAT exam 01/12/25. Reviewed with Dr. Rowe- recommends Echo updated prior to surgery for valvular reevaluation (patient made aware/PCP placed order). Awaiting Echo report (EMILIANO, done 01/16). Chart Review Chart Review: Patient seen in Pre Admission Testing Teaching & Discussion Pre-Anesthesia Teaching/Discussion Notes: Instructed NPO after midnight before surgery,except medications with 15 cc of water. Medication instructions provided according to the PAT guidelines. History Surgery Operation Date: 02/02/25 08:50 Proposed Procedures p Left Total Knee Arthroplasty - Leonardo Phillips MD Height/Weight Height: 5 ft 0.5 in Weight: 92 kg Allergies Allergy/AdvReac Type Severity Reaction Status Date / Time ibuprofen [From Advil] AdvReac Intermediate Heart Verified 01/10/25 13:11 fluttering sensation ("can tolerate aleve") Medications Home Medications Medication Instructions Recorded Confirmed Last Taken vitamin B complex 1 tab PO UD 04/24/19 01/03/25 06/09/20 08:00 blood sugar diagnostic (OneTouch #100 ea 07/08/22 09/11/24 Unknown Ultra Test strips) blood-glucose meter (OneTouch #1 ea 07/08/22 09/11/24 Unknown Ultra2 Meter kit) azelastine 137 mcg (0.1 %) nasal 1 spray intranasal Q12H PRN 01/08/23 01/03/25 Unknown spray allergies cyclobenzaprine 5 mg tablet 5 mg PO TID PRN muscle spasm #30 08/11/23 01/03/25 Unknown tabs albuterol sulfate 90 mcg/actuation 2 puff inhalation Q6H PRN 11/15/23 01/03/25 Unknown aerosol inhaler shortness of breath or wheezing #18 grams naproxen 500 mg tablet 500 mg PO BID PRN pain #60 tabs 03/15/24 01/03/25 Unknown losartan 50 mg tablet 50 mg PO BID #180 tabs 09/25/24 01/03/25 Unknown amlodipine 10 mg tablet 10 mg PO QAM 01/03/25 01/03/25 Unknown atorvastatin 20 mg tablet 20 mg PO QAM 01/03/25 01/03/25 Unknown cholecalciferol (vitamin D3) 50 2,000 unit PO QAM 01/03/25 01/03/25 Unknown mcg (2,000 unit) capsule ezetimibe 10 mg tablet (Zetia) 10 mg PO QAM 01/03/25 01/03/25 Unknown hydrochlorothiazide 25 mg tablet 25 mg PO QAM 01/03/25 01/03/25 Unknown levothyroxine 125 mcg tablet 125 mcg PO QAM 01/03/25 01/03/25 Unknown metformin 1,000 mg tablet 1,000 mg PO QAM 01/03/25 01/03/25 Unknown Past Medical History Medical History Allergic rhinitis Asthma Cardiac murmur Echo 06/2021: Indication- murmur. Possible AV sclerosis (valve not well seen). No hemodynamically significant aortic stenosis. No AR. DDD (degenerative disc disease), cervical Hx History of depression HLD (hyperlipidemia) HTN (hypertension) Hx of migraines Hx of renal calculi Passed on own Hypothyroidism Obesity Osteoarthritis of both knees Type 2 diabetes mellitus Exercise / Class Metabolic Activity II 4-5 Yardwork/Stairs/Walk up hill (one FS: No CP, no SOB) Past Family History Family History Mother Atherosclerosis Peripheral vascular disease Father , age 45 Stroke Hypertension Aunt Diabetes maternal Breast cancer maternal Grandmother (Maternal) Diabetes Sister Hypertension Denies family history of Ovarian cancer Prostate cancer Lung cancer Colorectal cancer Past Surgical History Surgical History H/O arthroscopy of right knee (2019) History of hysterectomy partial History of postoperative nausea and vomiting Status post total right knee replacement (06/10/20) [facility] [place] teeth removed Past Anesthesia History No Hx of Anesthesia Complications * Mother- difficulty waking up History of PONV History of PONV and Hx of Motion Sickness (Occasional) Social History Smoking Status: Never smoker Do You Dip or Chew Tobacco: No Hx Alcohol Use: Yes alcohol intake frequency: holidays/special occasions only Hx Substance Use: No substance use type: does not use Review of Systems Chronic seasonal allergies. Patient denies chest pain, shortness of breath, dyspnea on exertion, fever, chills. Physical Exam Vital Signs BP 143/82 P 80 TEMP 98.0 SP02 95%RA RESP 16 Physical Full cervical extension range of motion. Full TMJ range of motion. TMD 3 finger breaths Mallampati Score I Dentition: several missing teeth (upper front right) Lungs: clear throughout to auscultation Cardiac: regular rate and rhythm, III/ murmur with faint carotid radiation Spine: normal Extremities: no LE edema Lab Results Anesthesia Preop Results Results Anesthesia Widget: WBC 9.05 K/ul (4.8-10.8) 01/12/25 Hgb 14.3 g/dl (12.0-16.0) 01/12/25 Hct 43.0 % (37.0-47.0) 01/12/25 Plt 349 K/uL (130-400) 01/12/25 Na 140 mmol/L (136-145) 01/12/25 K 4.2 mmol/L (3.5-5.1) 01/12/25 Cl 104 mmol/L (98-107) 01/12/25 CO2 29 mmol/L (21-32) 01/12/25 BUN 13 mg/dl (6-23) 01/12/25 Creat 0.70 mg/dl (0.6-1.2) 01/12/25 Glucose Level 91 mg/dl (70-99(Fasting)) 01/12/25 PT 10.2 Seconds (9.0-12.0) 01/12/25 PTT 27 Seconds (21-31) 01/12/25 INR 0.9 (0.9-1.1) 01/12/25 HA1c 6.0 % (4.5-5.6) H 01/12/25 Blood Type B Positive 01/12/25 Antibody Screen NEGATIVE 01/12/25 Testing Electrocardiogram Date: 01/12/25 NSR at 75bpm. "Normal ECG" Chest X-Ray Date: 01/12/25 IMPRESSION: 1. No active cardiopulmonary disease. 2. Chronic eventration of right hemidiaphragm, interval stable. Echocardiogram Date: 06/27/21 EF 60-65%. No RWMA. Moderate cLVH. Slightly elevated aortic transvalvular gradient, possibly due to sclerotic aortic valve, however valve was not well seen.
--- NOTE | 2025-01-25 20:45 | History & Physical Report ---
Date of Service January 25, 2025 Assessment & Plan (1) Osteoarthritis of knees, bilateral: 69-year-old female status post right knee replacement 4 and half years ago with advanced left knee DJD. She failed conservative treatment. She is ready to proceed with left knee replacement. Plan: We are going to take her to the operating room and do a left knee replacement. The risks met this procedure explained. Informed consent was obtained. She will use [employer] for therapy postoperatively. She has family that is going to come and assist in her care at home. We use aspirin for DVT prophylaxis. (2) Type 2 diabetes mellitus: (3) Depression: (4) Hypothyroidism: (5) Hypertension: (6) Hyperlipidemia: History of Present Illness Chief Complaint: . Persistent left knee pain and discomfort. Primary Care Provider: Silva Mcdowell DO . The patient is a 69-year-old female well-known to me from previous right knee replacement 4 and half years ago. She got no known left knee arthritis. She been through extensive conservative treatment which has become less successful over time. Last shot really did not help her much at all. Pain is mostly medial but some global pain. Very happy with the right knee and would like to have her left knee fixed. Allergies Allergy/AdvReac Type Severity Reaction Status Date / Time ibuprofen [From Advil] AdvReac Intermediate Heart Verified 01/10/25 13:11 fluttering sensation ("can tolerate aleve") Home Medications Medication Instructions Recorded Confirmed Type vitamin B complex 1 tab PO UD 04/24/19 01/03/25 History blood sugar diagnostic (OneTouch #100 ea 07/08/22 09/11/24 Rx Ultra Test strips) blood-glucose meter (OneTouch #1 ea 07/08/22 09/11/24 Rx Ultra2 Meter kit) azelastine 137 mcg (0.1 %) nasal 1 spray intranasal Q12H PRN 01/08/23 01/03/25 History spray allergies cyclobenzaprine 5 mg tablet 5 mg PO TID PRN muscle spasm #30 08/11/23 01/03/25 Rx tabs albuterol sulfate 90 mcg/actuation 2 puff inhalation Q6H PRN 11/15/23 01/03/25 Rx aerosol inhaler shortness of breath or wheezing #18 grams naproxen 500 mg tablet 500 mg PO BID PRN pain #60 tabs 03/15/24 01/03/25 Rx losartan 50 mg tablet 50 mg PO BID #180 tabs 09/25/24 01/03/25 Rx amlodipine 10 mg tablet 10 mg PO QAM 01/03/25 01/03/25 History atorvastatin 20 mg tablet 20 mg PO QAM 01/03/25 01/03/25 History cholecalciferol (vitamin D3) 50 2,000 unit PO QAM 01/03/25 01/03/25 History mcg (2,000 unit) capsule ezetimibe 10 mg tablet (Zetia) 10 mg PO QAM 01/03/25 01/03/25 History hydrochlorothiazide 25 mg tablet 25 mg PO QAM 01/03/25 01/03/25 History levothyroxine 125 mcg tablet 125 mcg PO QAM 01/03/25 01/03/25 History metformin 1,000 mg tablet 1,000 mg PO QAM 01/03/25 01/03/25 History Past Med/Surg History Problem List Biceps tendonitis on right Degenerative disc disease, cervical Allergic rhinitis Osteoarthritis of knees, bilateral Dorsalgia of lumbosacral region Arthritis of knee, left Vitamin D deficiency Encounter for pre-operative examination Knee pain, bilateral Depression Type 2 diabetes mellitus Nephrolithiasis Hypothyroidism Hypertension Hyperlipidemia Medical History DDD (degenerative disc disease), cervical Hx Osteoarthritis of both knees Hx of renal calculi Passed on own Type 2 diabetes mellitus Cardiac murmur Echo 06/2021: Indication- murmur. Possible AV sclerosis (valve not well seen). No hemodynamically significant aortic stenosis. No AR. Asthma Allergic rhinitis History of depression Hypothyroidism HLD (hyperlipidemia) HTN (hypertension) Obesity Hx of migraines Surgical History History of postoperative nausea and vomiting Status post total right knee replacement (06/10/20) [facility] History of hysterectomy partial [place] teeth removed H/O arthroscopy of right knee (2019) Family History Mother Atherosclerosis Peripheral vascular disease Father , age 45 Stroke Hypertension Aunt Diabetes maternal Breast cancer maternal Grandmother (Maternal) Diabetes Sister Hypertension Denies family history of Ovarian cancer Prostate cancer Lung cancer Colorectal cancer Social History Smoking Status: Never smoker Second Hand Exposure: No; Do You Dip or Chew Tobacco: No; Hx Alcohol Use: Yes Hx Substance Use: No Preferred Language: Belarusian Communication Ability: Effective Visual Impairment: Limited Hearing Ability: Normal Junior Copywriter Required: No Beliefs That Will Affect Care: Jainism Jainism Beliefs: voodoo marital status: / Current Living Situation: Family Current Living Situation Comment: daughter lives with pt current occupational status: unemployed How many Children do You have: 2 Feels Safe at Home: Yes Childhood Exposure to Second-Hand Smoke: No Diet: regular Diet Comment: regular caffeine: Yes (coffee) during the past year weight has: remained stable Dental Care, Regularly: No Physical Activity Frequency: 3-4 Times per Week Physical Activity Frequency Comment: walking Seatbelt Use: always Sunscreen Use: Yes Assistive Devices: Glasses Review of Systems All systems reviewed & are unremarkable except as noted in HPI & below. Physical Exam . Physical examination was a pleasant middle-aged female but looks in pretty good health. Examination of the left knee reveal patient walks with a slight bit of a limp. She has varus alignment to her knee. Small knee effusion. Tender with medial joint line. Range of motion is 5-1 20. No instability. Examination of the right knee reveals well-healed incision. Anatomic alignment to the knee. Range of motion 0-1 20. Good straight leg raise. Constitutional WD/WN, vitals as above Respiratory normal respiratory effort, lungs clear to auscultation Cardiovascular RRR, no murmur, no edema Gastrointestinal (Abdomen) normal bowel sounds, soft, nontender, no hepatosplenomegaly Results & Data Results & Data Laboratory Results . Diagnostic Findings . X-rays of the left knee were reviewed. Shows advanced left knee DJD. She has complete loss of medial joint space. She has subchondral sclerosis. She got osteophytes primarily medially. The right knee replaced looks to be good position without problems. PG Care Time/CCT Total # of Minutes Spent Total Time Spent with Patient: Total time spent is greater than 50% in coordination of care (as documented) at patient's floor/unit and/or counseling patient: Coding Level of Care Code None Diagnoses Osteoarthritis of knees, bilateral M17.0 Type 2 diabetes mellitus E11.9 Depression F32.9 Hypothyroidism E03.9 Hypertension I10 Hyperlipidemia E78.5
[~2025-02-02 08:46] MED LIST changes: -ALBUAER19 INH; +BUPIVACAINE 0.5 % 5 MG/1 ML PF 10ML VIAL ONE; -CIPR-255 PO; +EPINEPHrine INJ 1 MG/ML AMP ONE; -EZET10TA47 PO; -LEVO75TA36 PO; -LISI10TA PO; -METF-384 PO; -NAPR220T40 PO; +ROPIVACAINE 0.5% 5 MG/ML 30 ML VIAL ONE; -SIMV20TA2 PO; -VITBC PO
--- NOTE | 2025-02-02 08:48 | History & Physical Bridge Note ---
Date of Service February 02, 2025 History & Physical Bridge Note I have examined the patient, reviewed the History & Physical and in the interval since the performance of the History & Physical I have noted the following changes of clinical significance: no changes noted
[2025-02-02] MEDS: LR 500ML BOLUS, THEN 15ML/HR IV SCH (09:05)
[2025-02-02] MEDS ORDERED: ATROPINE SULFATE 0.1 MG/ML 10ML SYR IV PRN (09:43)
[2025-02-02] MEDS ORDERED: ePHEDrine sulfate 50 MG/ML AMP IV PRN (09:43)
[2025-02-02] MEDS ORDERED: MIDAZOLAM HCL 1 MG/ML 2ML VIAL ONE (09:44)
[2025-02-02] MEDS ORDERED: fentaNYL citrate PF 100 MCG/2 ML VIAL ONE (09:44)
[2025-02-02] MEDS ORDERED: PROPOFOL IV EMULSION 10 MG/ML 100 ML VIAL IV ONE (09:47)
[2025-02-02] MEDS ORDERED: LIDOCAINE 2% 2 ML VIAL/AMP(20MG/ML) INFIL ONE (09:47)
[2025-02-02] MEDS: ACETAMINOPHEN 500 MG TAB PO SCH ×2 (09:49→14:21)
[2025-02-02] MEDS: FAMOTIDINE 20 MG TAB PO SCH (09:49)
[2025-02-02] MEDS: CeleBREX 200 MG CAP PO SCH (09:49)
[2025-02-02] MEDS: dexAMETHasone**PF** 10 MG/ML VIAL IV SCH (09:49)
[2025-02-02] MEDS: LR 60ML/HR IV SCH (09:49)
[2025-02-02] MEDS: METOCLOPRAMIDE HCL 10 MG TABLET PO SCH (09:49)
[2025-02-02] MEDS: ceFAZolin 2000MG 2,000 MG/15 ML SYR IV SCH ×2 (11:34→18:18)
[2025-02-02] MEDS: ORTHO JOINT ANESTHETIC ONE (11:47)
[2025-02-02] MEDS ORDERED: ePHEDrine sulfate 50 MG/5 ML SYR ONE (11:56)
[2025-02-02] MEDS ORDERED: PHENYLEPHRINE 100MCG/ML 5ML SYR ONE (11:56)
[2025-02-02] MEDS: TRANEXAMIC ACID 1,000 MG **IV Intra-op IV SCH (12:02)
[2025-02-02] MEDS: ROPIV 0.5% 246mg, Ketorolac 30mg, EPINEPHrine 0.5mg in NSS INFIL SCH (12:22)
--- NOTE | 2025-02-02 13:00 | Operative Report ---
PG Post Operative Report Pre & Post Diagnosis Operation Date: 02/02/25 10:40 Pre-Op Diagnosis: Left Knee Osteoarthritis Post-Op Diagnosis: Left Knee Osteoarthritis I identified the patient and participated in the time-out.: Yes Procedure Operation Date: 02/02/25 10:40 Actual Procedures p Left Total Knee Arthroplasty - Leonardo Phillips MD Surgeon Leonardo Phillips MD Electric Cutter Operator Jan Christina PA-C Estimated Blood Loss 50 Findings Consistent with Post-Op Diagnosis Specimens Left knee sent for pathology. Anesthesia Type Spinal MAC Complications none Disposition Accompanied Patient To Recovery: No Indications The patient is a 69-year-old female with a long history of knee problems. She had a rather right knee replaced about 5 years ago. Over the past several years she developed increased pain discomfort in her left knee. She failed conservative measures. X-rays show advanced left knee arthritis. She elected proceed with left total knee arthroplasty. Description of Procedure Operative implants consist of: 1 Biomet Vanguard size 62.5 left posterior stabilized femoral component. 2. Biomet size 67 tibial tray. 3. 10 mm posterior stabilized polyethylene insert. 4. 28 x 8 all poly patella. The patient was taken to the op room, identified, placed on the operative table in the supine position. All contact areas were appropriately padded. IV antibiotics fibra anesthesia team. A spinal anesthetic and adductor canal block had been provided in the holding area. A Rubio catheter was placed in sterile fashion. A left thigh tourniquet was then placed. The left lower extremity was then prepped and draped in usual sterile fashion. The left leg was elevated and exsanguinated with use of an Esmarch and a turn was placed at 300 mmHg. An anterior approach to the left knee was then performed to a longitudinal incision centered over the patella. Sharp dissection was Through subcutaneous tissue down the extensor mechanism. A medial parapatellar arthrotomy incision was made. Some subperiosteal dissection was carried out medially. The fat pad was resected from the patella tendon. Lateral patellofemoral ligament was released. Patella subluxated laterally the knee was flexed. The osteophytes were taken off distal femur. The ACL and PCL were then released from distal femur and the tibia subluxated anteriorly. The external treatment LYMErix then placed on the anterior face of the tibia and adjusted 14 mm medially. The proximal tibial cut was made essentially flush with the most efficient aspect of the posterior medial tibial plateau. Some osteophytes were taken off medially. The tibia was then sized to a size 67. Attention drawn the femur. The distal femur there was a sharp drop with intramedullary canal was selected. A left 5 degree valgus cutting guide was placed. The distal femoral cutting block was pinned in place. The distal femoral cut was made to take an additional 3 mm of bone off the distal femur. The femur was then sized to a size 62.5. The AP cutting block was pinned parallel to the epicondylar axis which was 3 degrees of external rotation. The anterior cut, anterior chamfer, posterior cut, posterior chamfer cuts were made. The box cutting guide was placed and just slight lateral and the box cut was made. The knee was flexed. The remnants of the medial and lateral menisci were excised. The osteophytes were taken off the posterior aspect the femur. A trial femoral component was placed. The tibial tray was pinned in Linda external rotation and the drill and stem punch used great defect in the proximal tibia for the tibial tray. The knee was then trialed and the 10 mm insert fit most appropriately. Attention drawn the patella. The patella was cleaned of all soft tissue. Patella thickness measured 21 mm in thickness and was cut down to 14. Was sized to a size 28 patella. The lug holes were drilled for the 28 patella. The lateral osteophytes removed. The patella button was placed. Knee was taken through range of motion patella tracked nicely with no thumbs test. Attention jointer placed in permanent components. All trial components were removed. A bone plug was placed into the distal femur limit blood loss. A double batch [place] G cement was mixed. Biomet Vanguard size 62.5 left posterior stabilized femoral component, size 67 tibial tray, a 10 mm posterior stabilized polyethylene insert, and a 28 x 8 all poly patella and cemented in place. The knee was brought out into full extension till cement hardened. A final cement check was then performed. The pericapsular tissues w ere injected with total 100 cc of Ortho mix. The patient did receive 1 g tranexamic acid. The tourniquet was then let down for final tourniquet time of 54 minutes. Hemostasis assured with electrocautery. Extensor Meclomen then closed with combination 1 PDS suture #1 Vicryl suture in a [id number] fashion. Extensor Meclomen was checked and found to be intact with the subcutaneous tissue then closed with 2 Dexon suture in a buried interrupted fashion skin was closed skin lawrence. Leg was then cleaned and dried and sterile dressed with Xeroform, 4 fours, sterile cast padding, Myron bandage were applied. Patient then transferred to the recovery room in stable condition. Patient tolerated the procedure well and there were no complications. Jan Christina, my physician assistant community director, was present for the entire procedure. His assistance was essential and required for appropriate patient positioning, prepping and draping, surgical exposure, performing the technical details of the operation, placement the implants, closure of the wound, and placement of the sterile bandage. I attest to the content of the Intraoperative Record and any orders documented therein. Any exceptions are noted below.
--- NOTE | 2025-02-02 13:32 | XRay Report ---
XR knee LT 1 or 2V routine CLINICAL HISTORY: Surgical Post Op COMPARISON: None FINDINGS: Left knee prosthesis shows no hardware complication. There is expected soft tissue gas. Sk in lawrence are present. IMPRESSION: Unremarkable postoperative exam. ACT 112: Negative or not required by law. Electronically signed by: Leon Estrada M.D. 02/02/2025 1:31 PM
--- NOTE | 2025-02-02 13:49 | Anesthesiology Progress Note ---
Date of Service February 02, 2025 Anesthesia Post Procedure Vital Signs Vital Signs: Temp Pulse Pulse Resp BP Pulse Ox O2 Del Method 02/02/25 13:35 97.9 F 90 20 135/67 95 Nasal Cannula 02/02/25 13:25 88 20 133/73 96 Nasal Cannula 02/02/25 13:15 96 H 19 119/72 96 Nasal Cannula 02/02/25 13:05 96 H 19 131/71 92 Nasal Cannula 02/02/25 12:58 97.5 F L 98 H 20 104/80 97 Nasal Cannula 02/02/25 09:32 97.9 F 82 20 146/70 H 95 Room Air O2 Flow Rate 02/02/25 13:35 2 02/02/25 13:25 2 02/02/25 13:15 2 02/02/25 13:05 2 02/02/25 12:58 2 02/02/25 09:32 Pain Intensity Left Knee: Pain Intensity: 7 Head: Pain Intensity: 4 Transfer of Care Handoff Completed per policy Notes Mental Status: alert / awake / arousable and participated in evaluation Patient Amnestic to Procedure: Yes Nausea / Vomiting: adequately controlled Pain: adequately controlled Airway Patency, RR, SpO2: stable & adequate BP & HR: stable & adequate Hydration State: stable & adequate Neuraxial Anesthesia: was administered and sensory block is resolving Anesthetic Complications: no major complications apparent and Pt Satisfied with anesthetic care
[2025-02-02] MEDS ORDERED: bisacodyL 10 MG SUPP PR PRN (14:06)
[2025-02-02] MEDS ORDERED: NALOXONE HCL 0.4 MG/1 ML VIAL/CARP IV PRN (14:06)
[2025-02-02] MEDS ORDERED: ALUMINUM/MAGNESIUM SUSP 30 ML UDC PO PRN (14:06)
[2025-02-02] MEDS ORDERED: ALBUTEROL HFA 8 GM INHALER INH PRN (14:06)
[2025-02-02] MEDS ORDERED: HYDROmorphone INJ 0.5 MG/0.5 ML SYR IV PRN (14:06)
[2025-02-02] MEDS ORDERED: MAGNESIUM HYDROXIDE SUSP 30 ML UDC PO PRN (14:06)
[2025-02-02] MEDS ORDERED: ONDANSETRON INJ 2 MG/ML 2 ML VIAL IV PRN (14:06)
[2025-02-02] MEDS ORDERED: CYCLOBENZAPRINE HCL 5 MG TAB PO PRN (14:06)
[2025-02-02] MEDS ORDERED: PHARMACY GLYCEMIC MGMT CONSULT PRN (14:06)
[2025-02-02] MEDS ORDERED: METOCLOPRAMIDE HCL INJ 5 MG/ML 2 ML VIAL IV PRN (14:06)
[2025-02-02] MEDS ORDERED: AZELASTINE HCL 0.1% NASAL 200 SPRAYS/27,400 MCG BTL NAE PRN (14:06)
[2025-02-02] MEDS: SODIUM CHLORIDE 0.9% 1,000 ML IV SCH (14:21)
[2025-02-02] MEDS ORDERED: DEXTROSE 50% 50 ML SYRINGE IV PRN (14:45)
[2025-02-02] MEDS ORDERED: GLUCAGON FOR INJ 1 MG VIAL SQ PRN (14:45)
[2025-02-02] MEDS ORDERED: GLUCOSE 10 TAB/TUBE PO PRN (14:45)
[2025-02-02] MEDS ORDERED: CARBOHYDRATES FOR HYPOGLYCEMIA PO PRN (14:45)
[2025-02-02] MEDS ORDERED: GLUCOSE 40% GEL 15 GM TUBE PO PRN (14:45)
--- NOTE | 2025-02-02 14:45 | Pharmacy Report ---
Pharmacy Glycemic Short Note 2 - Date of Service February 02, 2025 - Glycemic Short BSG Results (Last 24 hours): 02/02/25 02/02/25 09:08 13:24 POC Glucose 93 142 H OUTPATIENT ANTIDIABETIC REGIMEN: * Metformin 1000 mg PO AM HbA1c: * 6% (01/12/25) ASSESSMENT: * 69 yo F admitted on 02/02/25 postoperatively following a left total knee arthroplasty. Pharmacy has been consulted to assist with inpatient glycemic management. Patient is a Type 2 diabetic as an outpatient. Please refer to outpatient regimen and most recent HbA1c above. * Preop BSG was 93 mg/dL. Postop BSG was 142 mg/dL. Patient received 10 mg IV dexamethasone preop. Ordered another one time dose of Dexamethasone 10 mg IV for tomorrow morning. * Given steroids, will add basal doses to cover steroids only. Then basal can likely be discontinued. * Novolog will be ordered based on weight/stress of 3. Postop BSG goal is less than 180 mg/dL to lower postop infection risk. Patient is ordered a T2DM diet, follow to see how she tolerates. PLAN FOR INPATIENT GLYCEMIC CONTROL: * Hold outpatient oral diabetes medications * Basal insulin * Lantus 15 units SC daily x 2 doses while on steroids * Bolus insulin * NovoLog per scale ACHS or Q6hrs while NPO * Goal Range: Low 110 mg/dL - High 140 mg/dL * Correction Factor: 20 mg/dL/unit * Nutritional / Prandial insulin per carb ratio of 1 unit per 7 grams CHO consumed
[2025-02-02] MEDS: KETOROLAC TROMETHAMINE 15 MG/ML VIAL IV SCH (15:06)
[2025-02-02] MEDS: oxyCODONE HCL IR 5 MG TAB (IMMEDIATE RELEASE) PO PRN (16:06)
[2025-02-02] MEDS: INSULIN ASPART PER UNIT CHARGE SC SCH (17:10)
[2025-02-02] MEDS: LANTUS PER UNIT CHARGE SC SCH (17:10)
[2025-02-02] MEDS: ASCORBIC ACID 500 MG TAB PO SCH (17:12)
[2025-02-02] MEDS: TRANEXAMIC ACID / 0.7% NACL 1,000 MG/100 ML BAG IV SCH (18:18)
[2025-02-02] MEDS: LOSARTAN POTASSIUM 50 MG TAB PO SCH (20:14)
[2025-02-02] MEDS: ASPIRIN 81 MG ECTAB PO SCH (20:14)
[2025-02-02] MEDS: DOCUSATE SODIUM 100 MG CAP PO SCH (20:15)
[2025-02-02] MEDS: SENNA 8.6 MG TAB PO SCH (20:22)
[2025-02-02] MEDS ORDERED: SENNA 8.6 MG TAB PO SCH (21:00)
[2025-02-03] MEDS: LEVOTHYROXINE SODIUM 125 MCG TABLET PO SCH (06:17)
[2025-02-03 06:21] LABS: Hematocrit (blood only) 36.4 % (37.0-47.0); Hemoglobin 12.3 g/dl (12.0-16.0); Mean Corpuscular Hemoglobin 30.8 pg (25.0-34.0); Mean Corpuscular Hgb Conc 33.8 g/dL (32.0-36.0); Mean Corpuscular Volume 91.2 fL (80.0-100.0); Mean Platelet Volume 9.5 fL (9.4-12.4); Platelet Count 351 K/uL (130-400); RDW Coefficient of Variation 12.4 % (11.5-14.5); RDW Standard Deviation 41.1 fL (36.4-46.3); Red Blood Count 3.99 M/uL (4.20-5.40)
[2025-02-03 06:42] LABS: BUN Creatinine Ratio 15.6 (10-20); Calcium 8.4 mg/dl (8.6-10.3); Creatinine Clr Calc Pharmacy 61.4 ml/min; Potassium 4.3 mmol/L (3.5-5.1)
[2025-02-03 07:50] VITALS: RESP 16; TEMP 98.1
--- NOTE | 2025-02-03 08:29 | Orthopedic Progress Note ---
Date of Service February 03, 2025 Assessment & Plan (1) Status post left knee replacement: Plan: 69-year-old female postop day 1 from left knee replacement doing pretty well. Pain is controlled. She is neurologically intact. Plan: 1. DVT prophylaxis including thigh-high teds, SCDs, aspirin twice a day. 2. PT/OT. Weight-bear as taught. Left total knee protocol. 3. Pain control. Doing well with current pain regimen. 4. Disposition. Plan is discharge home with some home health. She lives with her daughter who is going to assist in her care. (2) Type 2 diabetes mellitus: (3) Depression: (4) Hypertension: (5) Hyperlipidemia: Admission and Anticipated Discharge Date Admission Date: February 02, 2025 Subjective 69-year-old female postop day 1 from left knee replacement. She is doing pretty well. Had a pretty good night. Pains been controlled. No chest pain or shortness of breath. Not feeling dizzy or lightheaded. Physical Exam Physical Exam: Physically she is a pleasant middle-age female. That she is sitting up in bed looks pretty comfortable. Examination of left leg reveals dressing be clean dry and intact. Leg is well aligned. She can dorsiflex and plantarflex her foot appropriately. She is neurologically intact. She can do a straight leg raise. Respiratory: normal respiratory effort, lungs clear to auscultation Cardiovascular: RRR, no murmur, no edema Gastrointestinal (Abdomen): normal bowel sounds, soft, nontender, no hepatosplenomegaly Results & Data Vital Signs (Past 12 Hours) Vital Signs Temp Pulse Resp BP BP Pulse Ox O2 Del Method 02/03/25 07:49 36.7 C 77 16 136/78 93 Room Air 02/03/25 03:00 36.6 C 77 18 136/80 91 Room Air 02/02/25 23:00 36.6 C 88 18 150/77 H 91 Room Air Laboratory Results Hemoglobin is 12.3. Hematocrit is 36.4. Electrolytes are stable.
[2025-02-03] MEDS: dexAMETHasone 10 MG in SYRINGE 0 ML IV SCH (08:31)
[2025-02-03] MEDS: hydroCHLOROthiazide 25 MG TAB PO SCH (08:31)
[2025-02-03] MEDS: VITAMIN B COMPLEX TAB PO SCH (08:31)
[2025-02-03] MEDS: EZETIMIBE 10 MG TAB PO SCH (08:31)
[2025-02-03] MEDS: CHOLECALCIFEROL 25 MCG (1000 UNITS) TAB PO SCH (08:31)
[2025-02-03] MEDS: MULTIVITAMIN TAB PO SCH (08:32)
[2025-02-03] MEDS: ATORVASTATIN 20 MG TAB PO SCH (08:32)
[2025-02-03] MEDS: amLODIPine BESYLATE 5 MG TAB PO SCH (08:32)
[2025-02-03 11:06] VITALS: BP 141/75; PULSE 82; O2SAT 96
== END 2025-02-03 11:50 | disposition home health service (06) ==
LOC: ASU 08:46 → 3W 08:46